=== PATIENT | female | born 1950 | race Caucasian/White ===

== ENCOUNTER 2020-02-09 17:12 | Inpatient (IN) ==
[2020-02-09] MEDS ORDERED: ALBUT/IPRATROP 3MG/0.5MG NEB 3 ML VIAL INH STA (17:47)
--- NOTE | 2020-02-09 17:51 | Emergency Department Note ---
Impression & Plan Acute exacerbation of chronic obstructive airways disease, Abnormal ECG, Chest pain, Bronchitis ED Provider Note NAME: CHAY ALMENDAREZ AGE: 69 SEX: F : 1950 ARRIVES VIA: Walk-In INFORMANT: Patient ED PROVIDER(S): Jim Holliday DO CHIEF COMPLAINT: Shortness of breath with a cough HPI: Patient is a 69-year-old female who presents the ER for shortness of br eath associated with a cough which is been worsening over the past 3 days. She notes she has had these symptoms off and on since end of October. She has been treated with 2 rounds of oral antibiotics/amoxicillin for a complicated bronchitis. She notes the symptoms improved and then they would recur. She denies any sore throat or runny nose. No loss of taste or smell. No ear congestion. She denies any current chest pain but does admit to some shortness of breath. Denies any belly pain nausea vomiting diarrhea or dysuria urgency. Denies any recent weight gain. Patient denies diabetes, hypertension, hyperlipidemia, CAD, or history of sudden at a young age. Patient denies swelling of calves, recent trips, history of immobilization or recent surgery, prior history of DVT, hemoptysis, history of malignancy, or control/estrogen use. Patient is a previous smoker for about 40 years. Was tested for coronavirus this past Thursday but was negative. ROS: See above HPI for pertinent positives & negatives. A total of 10 systems reviewed and were otherwise negative. PAST MEDICAL HISTORY:See Below PAST SURGICAL HISTORY:See Below FAMILY HISTORY:See Below SOCIAL HISTORY:See Below HOME MEDICATIONS:See Below ALLERGIES:See Below VITALS:See Below PHYSICAL EXAMINATION: GENERAL: Sitting up in bed, alert, well appearing, well nourished, no distress, non-toxic EYE EXAM: normal conjunctiva. PERRL and EOM's grossly intact. OROPHARYNX: no exudate, no erythema, lips, buccal mucosa, and tongue normal and mucous membranes are moist NECK: supple, no nuchal rigidity, no adenopathy, non-tender LUNGS: Wheezing bilaterally. Normal chest wall mechanics HEART: no murmurs, S1 normal and S2 normal ABDOMEN: abdomen soft, non-tender, normo-active bowel sounds, no masses, no rebound or guarding. BACK: Back is symmetrical on inspection and there is no deformity, no midline tenderness, no CVA tenderness. SKIN: no rashes and no bruising UPPER EXTREMITIES: upper extremities are grossly normal. LOWER EXTREMITIES: No pitting edema. Calves are equal bilateral NEURO EXAM: Normal sensorium, cranial nerves II-XII grossly intact, normal speech, no gross weakness of arms, no gross weakness of legs. MEDICAL DECISION MAKING: Patient is a 69-year-old female that presents the ER for shortness of breath with a cough which is been present intermittently since October. She notes the past 3 days has been getting a lot worse. She notes that she is significantly out of breath. IV was established blood work was obtained. Labs show no significant leukocytosis or anemia. INR was unremarkable. BMP, LFTs bilirubin and troponin was negative. D-dimer was elevated. UA was negative. Influenza was negative. CT of the chest shows tree budding but no open emboli. Patient was given neb treatments and her wheezing significantly improved as well as her shortness of breath. Her EKG showed nonspecific ST wave changes. No other to compare to. She was given IV antibiotics and updated bedside. She was discussed with hospitalist for observation due to her shortness of breath and abnormal EKG. she does mid to having chest pain several days ago but has not had any since then. Triage Nursing notes reviewed. Prior medical records reviewed Vital Signs: reviewed and remarkable for hypertension Differential diagnosis: Differential diagnoses includes but is not limited to pneumonia, bronchitis, COPD/Asthma exacerbation, pneumothorax, pulmonary embolism, congestive heart failure, acute coronary syndrome ER treatment provided: See below Diagnostics interpreted by me: ECG: Sinus rhythm rate of 75 Normal axis No PVCs Nonspecific ST wave changes V3 through V6 EKG #2 Sinus rhythm rate of [address] wave changes in V3 through V6 Normal QTC Cardiac Monitoring: An order was placed for continuous cardiac monitoring. The monitor shows a rate of 75 with sinus rhythm. Laboratory studies: As stated above and show below. Imaging studies: Portable AP upright 1 view of the chest shows no focal infiltrate or pneumothorax. CT ANGIO of the chest shows no PEs and tree budding opacities. Consultation(s): Discussed with Dr. Perez ED COURSE: Procedures: none Critical Care: None Past Med/Surg History Social History (System 01/20/19 @ 10:58 by Angelica Yi) Feels Safe at Home: Yes Smoking Status: Former smoker Allergies Allergies Allergy/AdvReac Type Severity Reaction Status Date / Time aspirin Allergy Unknown Hives Verified 02/09/20 19:19 perfume Allergy Unknown Headache, Verified 02/09/20 19:19 breathing difficulties pneumococcal vaccine Allergy Unknown Egg shaped Verified 02/09/20 19:19 purplish lump Home Meds Home Medications Medication Instructions Recorded Confirmed alprazolam 0.25 mg PO BID PRN 02/09/20 02/09/20 ascorbic acid (vitamin C) [Vitamin 1 g PO QAM 02/09/20 02/09/20 C] biotin 5,000 mcg SUBLINGUAL QAM 02/09/20 02/09/20 calcium carbonate [Calcium 600] 600 mg PO HS 02/09/20 02/09/20 cholecalciferol (vitamin D3) 0 mcg PO Q2D 02/09/20 02/09/20 [Vitamin D3] citalopram 10 mg PO HS 02/09/20 02/09/20 colestipol 1 g PO TID PRN 02/09/20 02/09/20 cyclosporine [Restasis] 1 drp OPB [facility] 02/09/20 02/09/20 glucos sul [id number] 1 cap PO QA 02/09/20 02/09/20 [Glucosamine Chondroitin] lactobacillus combination no.4 0 mmu cells PO QAM 02/09/20 02/09/20 [Probiotic] lisinopril 10 mg PO HS 02/09/20 02/09/20 mirtazapine 15 mg PO 02/09/20 02/09/20 multivitamin 1 tab PO QA 02/09/20 02/09/20 omega [id number]-fish oil [Fish Oil] 1 cap PO Q2D 02/09/20 02/09/20 omeprazole 20 mg PO HS 02/09/20 02/09/20 oxybutynin chloride 5 mg PO QAM 02/09/20 02/09/20 pravastatin 20 mg PO HS 02/09/20 02/09/20 turmeric 400 mg PO QAM 02/09/20 02/09/20 vitamin B complex 1 cap PO Q2D 02/09/20 02/09/20 vitamin E 0 unit PO Q2D 02/09/20 02/09/20 Results & Data (ED) Vital Signs Vital Signs - 24 hr 02/09/20 17:26 02/09/20 18:15 02/09/20 18:30 Temperature 36.9 C Temperature Source Oral Pulse Rate 78 94 H Pulse Rate [Left Finger] 86 Pulse Rate from SpO2 Sensor 94 H Respiratory Rate 20 18 19 Respiratory Effort / Characteristics Non-Labored Spontaneous Blood Pressure 152/82 H 152/69 H Blood Pressure Mean 105 91 Pulse Oximetry 95 94 97 Oxygen Delivery Method Room Air Room Air Room Air Sepsis Recent Fever Within 48 Hours No Sepsis Action Taken by Nursing No Action Required 02/09/20 18:46 02/09/20 18:57 02/09/20 19:00 Temperature Temperature Source Pulse Rate 94 H 102 H Pulse Rate [Left Finger] Pulse Rate from SpO2 Sensor 94 H 102 H Respiratory Rate 21 21 Respiratory Effort / Characteristics Blood Pressure 145/104 H Blood Pressure Mean 113 Pulse Oximetry 97 97 97 Oxygen Delivery Method Room Air Sepsis Recent Fever Within 48 Hours Sepsis Action Taken by Nursing 02/09/20 19:10 02/09/20 19:20 02/09/20 19:30 Temperature Temperature Source Pulse Rate 93 H 93 H 87 Pulse Rate [Left Finger] Pulse Rate from SpO2 Sensor 94 H 93 H 88 Respiratory Rate 19 20 21 Respiratory Effort / Characteristics Blood Pressure Blood Pressure Mean Pulse Oximetry 100 100 98 Oxygen Delivery Method Sepsis Recent Fever Within 48 Hours Sepsis Action Taken by Nursing 02/09/20 19:40 02/09/20 19:50 02/09/20 20:00 Temperature Temperature Source Pulse Rate 89 92 H 83 Pulse Rate [Left Finger] Pulse Rate from SpO2 Sensor 89 91 H 84 Respiratory Rate 24 15 17 Respiratory Effort / Characteristics Blood Pressure Blood Pressure Mean Pulse Oximetry 98 100 99 Oxygen Delivery Method Sepsis Recent Fever Within 48 Hours Sepsis Action Taken by Nursing 02/09/20 20:10 02/09/20 20:20 02/09/20 20:24 Temperature Temperature Source Pulse Rate 88 94 H 89 Pulse Rate [Left Finger] Pulse Rate from SpO2 Sensor 89 95 H 93 H Respiratory Rate 21 22 24 Respiratory Effort / Characteristics Blood Pressure 165/138 H Blood Pressure Mean 146 Pulse Oximetry 97 100 100 Oxygen Delivery Method Sepsis Recent Fever Within 48 Hours Sepsis Action Taken by Nursing 02/09/20 20:30 02/09/20 20:40 02/09/20 20:57 Temperature Temperature Source Pulse Rate 87 88 101 H Pulse Rate [Left Finger] Pulse Rate from SpO2 Sensor 86 89 100 H Respiratory Rate 22 23 27 H Respiratory Effort / Characteristics Blood Pressure 137/84 Blood Pressure Mean 104 Pulse Oximetry 98 92 96 Oxygen Delivery Method Sepsis Recent Fever Within 48 Hours Sepsis Action Taken by Nursing 02/09/20 21:00 02/09/20 21:01 02/09/20 21:10 Temperature Temperature Source Pulse Rate 92 H 91 H 92 H Pulse Rate [Left Finger] Pulse Rate from SpO2 Sensor 92 H 90 90 Respiratory Rate 26 H 19 23 Respiratory Effort / Characteristics Blood Pressure 149/105 H Blood Pressure Mean 119 Pulse Oximetry 94 96 95 Oxygen Delivery Method Sepsis Recent Fever Within 48 Hours Sepsis Action Taken by Nursing 02/09/20 21:20 02/09/20 21:30 02/09/20 21:40 Temperature Temperature Source Pulse Rate 91 H 91 H 91 H Pulse Rate [Left Finger] Pulse Rate from SpO2 Sensor 92 H 91 H 93 H Respiratory Rate 25 H 22 22 Respiratory Effort / Characteristics Blood Pressure 166/121 H Blood Pressure Mean 130 Pulse Oximetry 98 98 100 Oxygen Delivery Method Sepsis Recent Fever Within 48 Hours Sepsis Action Taken by Nursing 02/09/20 21:50 02/09/20 22:00 02/09/20 22:01 Temperature Temperature Source Pulse Rate 91 H 92 H 96 H Pulse Rate [Left Finger] Pulse Rate from SpO2 Sensor 92 H 90 96 H Respiratory Rate 19 Respiratory Effort / Characteristics Blood Pressure 135/72 Blood Pressure Mean 93 Pulse Oximetry 97 99 97 Oxygen Delivery Method Sepsis Recent Fever Within 48 Hours Sepsis Action Taken by Nursing 02/09/20 22:10 02/09/20 22:20 02/09/20 22:30 Temperature Temperature Source Pulse Rate 93 H 91 H 90 Pulse Rate [Left Finger] Pulse Rate from SpO2 Sensor 93 H 92 H 91 H Respiratory Rate 23 23 Respiratory Effort / Characteristics Blood Pressure 135/87 Blood Pressure Mean 113 Pulse Oximetry 95 96 96 Oxygen Delivery Method Sepsis Recent Fever Within 48 Hours Sepsis Action Taken by Nursing 02/09/20 23:01 Temperature Temperature Source Pulse Rate 89 Pulse Rate [Left Finger] Pulse Rate from SpO2 Sensor 89 Respiratory Rate 21 Respiratory Effort / Characteristics Blood Pressure 128/85 Blood Pressure Mean 92 Pulse Oximetry 95 Oxygen Delivery Method Room Air Sepsis Recent Fever Within 48 Hours Sepsis Action Taken by Nursing Laboratory Data Result diagrams: 02/09/20 19:24 02/09/20 18:30 Lab Results 02/09/20 02/09/20 02/09/20 Range/Units 18:30 18:30 18:30 WBC Cancelled RBC Cancelled Hgb Cancelled Hct Cancelled MCV Cancelled MCH Cancelled MCHC Cancelled RDW Std Deviation Cancelled RDW Coeff of Hayder Cancelled Plt Count Cancelled MPV Cancelled Immature Gran % (Auto) Cancelled Neut % (Auto) Cancelled Lymph % (Auto) Cancelled [place] % (Auto) Cancelled Eos % (Auto) Cancelled Baso % (Auto) Cancelled Immature Gran # (Auto) Cancelled Neut # (Auto) Cancelled Lymph # (Auto) Cancelled [place] # (Auto) Cancelled Eos # (Auto) Cancelled Baso # (Auto) Cancelled Absolute Nucleated RBC Cancelled Nucleated RBC % (auto) Cancelled Neutrophils % (Manual) Cancelled Band Neutrophils % Cancelled Lymphocytes % (Manual) Cancelled Prolymphocyte % Cancelled Reactive Lymphs % (Man) Cancelled Monocytes % (Manual) Cancelled Eosinophils % (Manual) Cancelled Basophils % (Manual) Cancelled Metamyelocytes % (Man) Cancelled Myelocytes % (Man) Cancelled Promyelocytes % (Man) Cancelled Blast Cells % (Manual) Cancelled Plasma Cell % (Manual) Cancelled Other Cells % Cancelled Nucleated RBC % Cancelled Neutrophils # (Manual) Cancelled Band Neutrophils # Cancelled Total Absolute Neuts Cancelled Lymphocytes # (Manual) Cancelled Prolymphocyte # Cancelled Reactive Lymphs # Cancelled Total Abs Lymphocytes Cancelled Monocytes # (Manual) Cancelled Eosinophils # (Manual) Cancelled Basophils # (Manual) Cancelled Metamyelocytes # (Man) Cancelled Myelocytes # (Manual) Cancelled Promyelocytes # (Man) Cancelled Blast Cells # (Man) Cancelled Plasma Cell # (Manual) Cancelled Other Cells # Cancelled Nucleated RBCs # (Man) Cancelled Hypersegmented Neuts Cancelled Hyposegmented Neuts Cancelled Hypogranular Neuts Cancelled Large Granular Lymphs Cancelled # Lrg Granular Lymphs Cancelled Hairy Cells Cancelled Smudge Cells Cancelled Toxic Granulation Cancelled Toxic Vacuolation Cancelled Dohle Bodies Cancelled Ana Rods Cancelled Platelet Estimate Cancelled Hypogranular Platelets Cancelled Clumped Platelets Cancelled Giant Platelets Cancelled Platelet Satelliting Cancelled RBC Morphology Cancelled Polychromasia Cancelled Hypochromasia Cancelled Poikilocytosis Cancelled Basophilic Stippling Cancelled Anisocytosis Cancelled Microcytosis Cancelled Macrocytosis Cancelled Spherocytes Cancelled Pappenheimer Bodies Cancelled Sickle Cells Cancelled Target Cells Cancelled Tear Drop Cells Cancelled Ovalocytes Cancelled Stomatocytes Cancelled [place] Bodies Cancelled Echinocytes Cancelled Acanthocytes (Spur) Cancelled Rouleaux Cancelled RBC Agglutinates Cancelled Schistocytes Cancelled RBC Morph Comment Cancelled Sezary Cell Cancelled PT Cancelled INR Cancelled APTT Cancelled PTT Ratio Cancelled D-Dimer Cancelled Sodium 142 (136-145) mmol/L Potassium 4.6 (3.5-5.1) mmol/L Chloride 106 (98-107) mmol/L Carbon Dioxide 29 (21-32) mmol/L Anion Gap 7.0 (3-11) BUN 12 (7-18) mg/dl Creatinine 0.75 (0.6-1.2) mg/dl Est Cr Clr Drug Dosing Not Reportable Est GFR ( Amer) 94.3 Est GFR (Non-Af Amer) 81.3 BUN/Creatinine Ratio 16.5 (10-20) Glucose 89 (70-99) mg/dl Calcium 9.2 (8.5-10.1) mg/dl Total Bilirubin 0.4 (0.2-1) mg/dl AST 33 (15-37) U/L ALT 32 (12-78) U/L Alkaline Phosphatase 98 (45-117) U/L Troponin I < 0.015 (0-0.045) ng/ml NT-Pro-B Natriuret Pep 76 (0-900) pg/ml Total Protein 6.8 (6.4-8.2) gm/dl Albumin 3.3 L (3.4-5.0) gm/dl Globulin 3.5 (2.5-4.0) gm/dl Albumin/Globulin Ratio 0.9 (0.9-2) Specimen Hemolysis Urine Color Urine Appearance (Clear) Urine pH (4.5-7.5) Ur Specific [place] (1.000-1.030) Urine Protein (Negative) Urine Glucose (UA) (Negative) Urine Ketones (Negative) Urine Blood (Negative) Urine Nitrite (Negative) Urine Bilirubin (Negative) Urine Urobilinogen (Negative) Ur Leukocyte Esterase (Negative) Influenza Type A (PCR) (Neg) Influenza Type B (PCR) (Neg) 02/09/20 02/09/2002/08/20 Range/Units 18:30 18:40 19:24 WBC RBC Hgb Hct MCV MCH MCHC RDW Std Deviation RDW Coeff of Hayder Plt Count MPV Immature Gran % (Auto) Neut % (Auto) Lymph % (Auto) [place] % (Auto) Eos % (Auto) Baso % (Auto) Immature Gran # (Auto) Neut # (Auto) Lymph # (Auto) [place] # (Auto) Eos # (Auto) Baso # (Auto) Absolute Nucleated RBC Nucleated RBC % (auto) Neutrophils % (Manual) Band Neutrophils % Lymphocytes % (Manual) Prolymphocyte % Reactive Lymphs % (Man) Monocytes % (Manual) Eosinophils % (Manual) Basophils % (Manual) Metamyelocytes % (Man) Myelocytes % (Man) Promyelocytes % (Man) Blast Cells % (Manual) Plasma Cell % (Manual) Other Cells % Nucleated RBC % Neutrophils # (Manual) Band Neutrophils # Total Absolute Neuts Lymphocytes # (Manual) Prolymphocyte # Reactive Lymphs # Total Abs Lymphocytes Monocytes # (Manual) Eosinophils # (Manual) Basophils # (Manual) Metamyelocytes # (Man) Myelocytes # (Manual) Promyelocytes # (Man) Blast Cells # (Man) Plasma Cell # (Manual) Other Cells # Nucleated RBCs # (Man) Hypersegmented Neuts Hyposegmented Neuts Hypogranular Neuts Large Granular Lymphs # Lrg Granular Lymphs Hairy Cells Smudge Cells Toxic Granulation Toxic Vacuolation Dohle Bodies Ana Rods Platelet Estimate Hypogranular Platelets Clumped Platelets Giant Platelets Platelet Satelliting RBC Morphology Polychromasia Hypochromasia Poikilocytosis Basophilic Stippling Anisocytosis Microcytosis Macrocytosis Spherocytes Pappenheimer Bodies Sickle Cells Target Cells Tear Drop Cells Ovalocytes Stomatocytes [place] Bodies Echinocytes Acanthocytes (Spur) Rouleaux RBC Agglutinates Schistocytes RBC Morph Comment Sezary Cell PT 10.7 INR 1.0 APTT 24.2 PTT Ratio 0.9 D-Dimer 810 H* Sodium (136-145) mmol/L Potassium (3.5-5.1) mmol/L Chloride (98-107) mmol/L Carbon Dioxide (21-32) mmol/L Anion Gap (3-11) BUN (7-18) mg/dl Creatinine (0.6-1.2) mg/dl Est Cr Clr Drug Dosing Est GFR ( Amer) Est GFR (Non-Af Amer) BUN/Creatinine Ratio (10-20) Glucose (70-99) mg/dl Calcium (8.5-10.1) mg/dl Total Bilirubin (0.2-1) mg/dl AST (15-37) U/L ALT (12-78) U/L Alkaline Phosphatase (45-117) U/L Troponin I (0-0.045) ng/ml NT-Pro-B Natriuret Pep (0-900) pg/ml Total Protein (6.4-8.2) gm/dl Albumin (3.4-5.0) gm/dl Globulin (2.5-4.0) gm/dl Albumin/Globulin Ratio (0.9-2) Specimen Hemolysis Urine Color Yellow Urine Appearance Clear (Clear) Urine pH 6.5 (4.5-7.5) Ur Specific [place] 1.008 (1.000-1.030) Urine Protein Negative (Negative) Urine Glucose (UA) Negative (Negative) Urine Ketones Negative (Negative) Urine Blood Negative (Negative) Urine Nitrite Negative (Negative) Urine Bilirubin Negative (Negative) Urine Urobilinogen Negative (Negative) Ur Leukocyte Esterase Negative (Negative) Influenza Type A (PCR) Neg for Influ A (Neg) Influenza Type B (PCR) Neg for Influ B (Neg) 02/09/20 Range/Units 19:24 WBC 8.21 RBC 4.43 Hgb 13.8 Hct 41.6 MCV 93.9 MCH 31.2 MCHC 33.2 RDW Std Deviation 44.6 RDW Coeff of [place]der 12.9 Plt Count 238 MPV 9.4 Immature Gran % (Auto) 0.2 Neut % (Auto) 43.0 Lymph % (Auto) 38.6 [place] % (Auto) 8.9 Eos % (Auto) 8.6 Baso % (Auto) 0.7 Immature Gran # (Auto) 0.02 Neut # (Auto) 3.52 Lymph # (Auto) 3.17 [place] # (Auto) 0.73 H Eos # (Auto) 0.71 H Baso # (Auto) 0.06 Absolute Nucleated RBC Nucleated RBC % (auto) Neutrophils % (Manual) Band Neutrophils % Lymphocytes % (Manual) Prolymphocyte % Reactive Lymphs % (Man) Monocytes % (Manual) Eosinophils % (Manual) Basophils % (Manual) Metamyelocytes % (Man) Myelocytes % (Man) Promyelocytes % (Man) Blast Cells % (Manual) Plasma Cell % (Manual) Other Cells % Nucleated RBC % Neutrophils # (Manual) Band Neutrophils # Total Absolute Neuts Lymphocytes # (Manual) Prolymphocyte # Reactive Lymphs # Total Abs Lymphocytes Monocytes # (Manual) Eosinophils # (Manual) Basophils # (Manual) Metamyelocytes # (Man) Myelocytes # (Manual) Promyelocytes # (Man) Blast Cells # (Man) Plasma Cell # (Manual) Other Cells # Nucleated RBCs # (Man) Hypersegmented Neuts Hyposegmented Neuts Hypogranular Neuts Large Granular Lymphs # Lrg Granular Lymphs Hairy Cells Smudge Cells Toxic Granulation Toxic Vacuolation Dohle Bodies Ana Rods Platelet Estimate Hypogranular Platelets Clumped Platelets Giant Platelets Platelet Satelliting RBC Morphology Polychromasia Hypochromasia Poikilocytosis Basophilic Stippling Anisocytosis Microcytosis Macrocytosis Spherocytes Pappenheimer Bodies Sickle Cells Target Cells Tear Drop Cells Ovalocytes Stomatocytes [place] Bodies Echinocytes Acanthocytes (Spur) Rouleaux RBC Agglutinates Schistocytes RBC Morph Comment Sezary Cell PT INR APTT PTT Ratio D-Dimer Sodium (136-145) mmol/L Potassium (3.5-5.1) mmol/L Chloride (98-107) mmol/L Carbon Dioxide (21-32) mmol/L Anion Gap (3-11) BUN (7-18) mg/dl Creatinine (0.6-1.2) mg/dl Est Cr Clr Drug Dosing Est GFR ( Amer) Est GFR (Non-Af Amer) BUN/Creatinine Ratio (10-20) Glucose (70-99) mg/dl Calcium (8.5-10.1) mg/dl Total Bilirubin (0.2-1) mg/dl AST (15-37) U/L ALT (12-78) U/L Alkaline Phosphatase (45-117) U/L Troponin I (0-0.045) ng/ml NT-Pro-B Natriuret Pep (0-900) pg/ml Total Protein (6.4-8.2) gm/dl Albumin (3.4-5.0) gm/dl Globulin (2.5-4.0) gm/dl Albumin/Globulin Ratio (0.9-2) Specimen Hemolysis Urine Color Urine Appearance (Clear) Urine pH (4.5-7.5) Ur Specific [place] (1.000-1.030) Urine Protein (Negative) Urine Glucose (UA) (Negative) Urine Ketones (Negative) Urine Blood (Negative) Urine Nitrite (Negative) Urine Bilirubin (Negative) Urine Urobilinogen (Negative) Ur Leukocyte Esterase (Negative) Influenza Type A (PCR) (Neg) Influenza Type B (PCR) (Neg) Administered Medications Levofloxacin/Dextrose (Levaquin/D5w) 750 mg in 150 mls @ 100 mls/hr IV Q24H SONJA Stop: 03/22/20 21:14 Last Admin: 02/09/20 21:54 Dose: 100 mls/hr Documented by: [id number] Ioversol (Optiray 320 125ml) 120 ml IV ONCE PRN PRN Reason: Interaction Checking Stop: 02/13/20 20:48 Last Admin: 02/09/20 20:49 Dose: 120 ml Documented by: [id number] Discontinued Medications Albuterol (Duoneb) 6 ml INH NOW STA Stop: 02/09/20 17:48 Last Admin: 02/09/20 18:12 Dose: 6 ml Documented by: [id number] Sodium Chloride (Nss) 500 mls @ 999 mls/hr IV .Q31M SONJA Stop: 02/09/20 18:30 Last Infusion: 02/09/20 19:30 Dose: 0 mls/hr Documented by: [id number] Admin: 02/09/20 18:55 Dose: 999 mls/hr Documented by: [id number] Discharge Plan Visit Data Chief Complaint: Shortness of Breath/Dyspnea Stated Complaint: LAST WEEK COVID TESTING, SOB ED Provider: Jim Holliday Discharge Problem: Acute exacerbation of chronic obstructive airways disease, Abnormal ECG, Chest pain, Bronchitis Discharge Instructions Interventions: ED Discharge Assessment Last Done: 02/09/20 22:54 Forms Stand Alone Forms: My [facility] Prescriptions Prescriptions: No Action multivitamin Tablet 1 tab PO QAM RF: 0 ascorbic acid (vitamin C) [Vitamin C] 1,000 mg Tablet 1 g PO QAM RF: 0 citalopram 10 mg tablet 10 mg PO HS RF: 0 calcium carbonate [Calcium 600] 600 mg calcium (1,500 mg) Tablet 600 mg PO HS RF: 0 alprazolam 0.25 mg tablet 0.25 mg PO BID PRN (Reason: Anxiety) RF: 0 lisinopril 10 mg tablet 10 mg PO HS RF: 0 oxybutynin chloride 5 mg tablet extended release 24hr 5 mg PO QAM RF: 0 omeprazole 20 mg capsule,delayed release(DR/EC) 20 mg PO HS RF: 0 pravastatin 20 mg tablet 20 mg PO HS RF: 0 mirtazapine 15 mg tablet 15 mg PO HS RF: 0 colestipol 1 gram tablet 1 g PO TID PRN (Reason: Diarrhea) RF: 0 vitamin E 400 unit Capsule 0 unit PO Q2D RF: 0 vitamin B complex Capsule 1 cap PO Q2D RF: 0 cholecalciferol (vitamin D3) [Vitamin D3] 25 mcg (1,000 unit) Capsule 0 mcg PO Q2D RF: 0 Restasis 0.05 % dropperette 1 drp OPB [facility] RF: 0 omega 2-pdq-qlp-fish oil [Fish Oil] 1,000 mg (120 mg-180 mg) Capsule 1 cap PO Q2D RF: 0 Probiotic 3 billion cell Capsule 0 mmu cells PO QAM RF: 0 biotin 5,000 mcg Tablet, Sublingual 5,000 mcg SUBLINGUAL QAM RF: 0 turmeric 400 mg Capsule 400 mg PO QAM RF: 0 Glucosamine Chondroitin 550-30-1 mg Capsule 1 cap PO QAM RF: 0 Referrals Referrals: Angelica Vargas DO [Primary Care Provider] - Discharge Problem: Chest pain Qualifiers: Chest pain type: unspecified Qualified Code(s): R07.9 - Chest pain, unspecified
[2020-02-09] MEDS ORDERED: SODIUM CHLORIDE 0.9% 500 ML IV SCH (18:00)
[2020-02-09 18:53] LABS: Appearance Urine Clear (Clear); Bilirubin Urine Negative (Negative); Blood Urine Negative (Negative); Color Urine Yellow; Glucose Urine UA Negative (Negative); Ketones Urine Negative (Negative); Leukocyte Esterase Urine Negative (Negative); Nitrite Urine Negative (Negative); Protein Urine Negative (Negative); Specific Gravity Urine 1.008 (1.000-1.030); Urobilinogen Urine Negative (Negative); pH Urine 6.5 (4.5-7.5)
--- NOTE | 2020-02-09 19:14 | XRay Report ---
XR chest 1V portable CLINICAL HISTORY: Dyspnea COMPARISON STUDY: No previous studies for comparison. FINDINGS: There is mild elevation of the right hemidiaphragm. Moderate dextroscoliosis of the thoraci c spine is noted. There is no consolidation or evidence for pulmonary edema. Apparent hazy left basil ar opacity is likely artifactual. There is borderline cardiomegaly. IMPRESSION: 1. No acute cardiopulmonary findings. 2. Moderate dextroscoliosis of the thoracic spine. ACT 112: Negative or not required by law. Electronically signed by: Abbe Morrow M.D. 02/09/2020 7:12 PM
[2020-02-09 19:25] LABS: Influenza A virus by PCR Neg for Influ A (Neg); Influenza B virus by PCR Neg for Influ B (Neg)
[2020-02-09 19:45] LABS: Basophils # (auto) 0.06 K/uL (0-0.2); Basophils % (auto) 0.7 %; Eosinophils # (auto) 0.71 K/uL (0-0.5); Eosinophils % (auto) 8.6 %; Hematocrit (blood only) 41.6 % (37-47); Hemoglobin 13.8 g/dL (12.0-16.0); Immature Granulocytes # (auto) 0.02 K/uL (0.00-0.02); Immature Granulocytes % (auto) 0.2 %; Lymphocytes # (auto) 3.17 K/uL (1.2-3.4); Lymphocytes % (auto) 38.6 %; Mean Corpuscular Hemoglobin 31.2 pg (25-34); Mean Corpuscular Hgb Conc 33.2 g/dL (32-36); Mean Corpuscular Volume 93.9 fL (80-100); Mean Platelet Volume 9.4 fL (7.4-10.4); Monocytes # (auto) 0.73 K/uL (0.11-0.59); Monocytes % (auto) 8.9 %; Neutrophils # (auto) 3.52 K/uL (1.4-6.5); Platelet Count 238 K/uL (130-400); RDW Coefficient of Variation 12.9 % (11.5-14.5); RDW Standard Deviation 44.6 fL (36.4-46.3); Red Blood Count 4.43 M/uL (4.2-5.4); White Blood Count 8.21 K/uL (4.8-10.8)
[2020-02-09 19:53] LABS: Alanine Aminotransferase 32 U/L (12-78); Albumin Globulin Ratio 0.9 (0.9-2); Albumin Level 3.3 gm/dl (3.4-5.0); Alkaline Phosphatase 98 U/L (45-117); BUN Creatinine Ratio 16.5 (10-20); Bilirubin,Total 0.4 mg/dl (0.2-1); Blood Urea Nitrogen 12 mg/dl (7-18); Calcium 9.2 mg/dl (8.5-10.1); Carbon Dioxide 29 mmol/L (21-32); Chloride 106 mmol/L (98-107); Est GFR (African American) 94.3; Est GFR (Non-African American) 81.3; Globulin 3.5 gm/dl (2.5-4.0); Glucose 89 mg/dl (70-99); NT Pro B Type Natriuretic Pept 76 pg/ml (0-900); Total Protein 6.8 gm/dl (6.4-8.2); Troponin I < 0.015 ng/ml (0-0.045)
[2020-02-09 19:58] LABS: Partial Thromboplastin Ratio 0.9; Partial Thromboplastin Time 24.2 Seconds (21.0-31.0); Prothrombin Time 10.7 Seconds (9.0-12.0)
[2020-02-09 20:03] LABS: Potassium 4.6 mmol/L (3.5-5.1); Sodium 142 mmol/L (136-145)
[2020-02-09 20:05] LABS: D Dimer 810 ug/L FEU (0-500)
[2020-02-09 20:12] LABS: Aspartate Aminotransferase 33 U/L (15-37)
[2020-02-09] MEDS ORDERED: OPTIRAY 320 125ml IV PRN (20:49)
--- NOTE | 2020-02-09 21:11 | CT Scan Report ---
CT ANGIOGRAPHY OF THE CHEST, PULMONARY EMBOLUS PROTOCOL CLINICAL HISTORY: Shortness of breath. Cough. COMPARISON STUDY: Chest radiograph performed earlier today. TECHNIQUE: Following IV administration of 20 mL of Optiray-320, helical axial images of the chest wer e obtained utilizing the pulmonary embolus protocol. Maximal intensity projections and sagittal and coronal reformats were viewed on an independent 3D workstation. IV contrast was administered without complication. Automated exposure control was utilized for the study. A dose lowering technique was utilized adhering to the principles of ALARA. CT DOSE: 618.71 mGycm FINDINGS: No pulmonary emboli are identified. The central pulmonary arteries are mildly dilated. The heart is mildly enlarged. There is mild preferential dilatation of the right heart chambers. Mild st raightening of the interventricular septum is noted. There is no pericardial effusion. No enlarged ax illary, mediastinal or hilar lymph nodes are present. The central airways are patent. No consolidatio n is identified. However, there are groundglass opacities with mosaic attenuation within the lungs. I n addition, there are scattered mild multifocal tree-in-bud nodules within the lungs. No pneumothorax or pleural effusion is noted. There is moderate dextroscoliosis of the thoracic spine. No suspicious lesions within the bony thorax are noted. IMPRESSION: 1. No pulmonary emboli identified. 2. Dilatation of the central pulmonary arteries which raises the possibility of pulmonary arterial hy pertension. Mild cardiomegaly with preferential dilatation of the right heart chambers and mild strai ghtening of the interventricular septum. 3. Scattered tree-in-bud nodules within the lungs which suggests an infectious process such as bronch iolitis. 4. Mild groundglass opacities with mosaic attenuation within the lungs which may reflect air trapping . ACT 112: Negative or not required by law. Electronically signed by: Abbe Morrow M.D. 02/09/2020 9:10 PM
[2020-02-09] MEDS ORDERED: LEVOFLOXACIN/D5W 750 MG/150 ML BAG IV SCH (21:15)
--- NOTE | 2020-02-09 23:44 | History and Physical Report ---
DATE OF ADMISSION: 02/09/2020 CHIEF COMPLAINT: Shortness of breath. HISTORY OF PRESENT ILLNESS: A 69-year-old female with past medical history significant for hyperlipidemia, hypertension, diverticulitis, irritable bowel syndrome, primary osteoarthritis of right shoulder, rotator cuff syndrome, nodular corneal degeneration, depression, generalized anxiety disorder, insomnia, presents with shortness of breath and cough and wheezing going on since October. She developed wheezing since October and in November she was treated with 10-day course of prednisone, amoxicillin seem to have improved and then the wheezing came back again on and off cough and she was given another 10-day course of prednisone, then last Thursday when she was talking on tele medicine with urologist, the urologist could hear wheezing and advised her to do COVID testing. It was done last Thursday and came back as negative. But today the cough got persistent and she is coughing up some yellowish phlegm which brought her to ER.. Denies any fever, chills, getting short of breath on exertion and wheezing. She has couple of episodes of chest pain but that got resolved, pressure like feeling. Denies any headache, has mild dizziness, no blurred vision, no earache, no runny nose, no sore throat, no difficulty swallowing. Appetite is good. Sleeping okay. No nausea, no vomiting, no abdominal pain. Normal bowel and bladder movements. No blood in stools or black stools. No hematuria or burning micturition, no swelling in the legs, no rash. Currently, resting comfortable and hemodynamically stable. ALLERGIES: ASPIRIN, PNEUMOCOCCAL VACCINE. PAST MEDICAL HISTORY: As mentioned above. PAST SURGICAL HISTORY: Colonoscopy, removal of the bilateral oviducts, right cataract surgery, total abdominal hysterectomy with removal of tubes. MEDICATIONS: The patient is on colestipol 1 gram p.o. t.i.d. p.r.n. for diarrhea, omeprazole 20 mg p.o. daily, oxybutynin XL 5 mg p.o. daily, citalopram 10 mg p.o. daily, alprazolam 0.5 mg p.o. b.i.d. p.r.n., Remeron 50 mg p.o. at bedtime, B complex vitamin 1 capsule daily, Biotin 1000 mcg daily, vitamin D3 5000 units p.o. daily, lisinopril 10 mg p.o. daily, pravastatin 20 mg p.o. daily, probiotic 1 capsule daily, glucosamine complex 1 tablet daily, Restasis 0.005% ophthalmic solution 1 drop in affected eye b.i.d., Systane ophthalmic solution 1 drop both eyes as needed, vitamin E 600 units p.o. daily, calcium 600 mg p.o. daily, multivitamins 1 tablet daily, vitamin C 500 mg p.o. b.i.d. FAMILY HISTORY: Significant for maternal grandmother had breast cancer. Mother had CAD, glaucoma. Father had accident. Sister has diabetes. SOCIAL HISTORY: , lives alone. Daughters live close by. Former smoker, smoked 3-4 pack a day for 15 years, quitting 40 years ago. Alcohol occasional. No drug use. REVIEW OF SYMPTOMS: As per HPI. Rest of review of systems negative. PHYSICAL EXAMINATION: GENERAL: The patient is of moderate build, not in acute distress. VITAL SIGNS: Temperature 36.9, pulse 91, respiratory rate 25, blood pressure 149/105, oxygen 98% room air. HEENT: No pallor, no icterus. Pupils equal, round, and reactive to light. NECK: No JVD, no neck masses, no carotid bruits. CARDIOVASCULAR: S1, S2 heard, regular rate and rhythm, no murmur, no gallop. RESPIRATORY SYSTEM: Normal AP diameter. No accessory muscle use. Bilateral mild wheezing and rhonchi heard, no crackles. ABDOMEN: Soft, bowel sounds present, nontender. No distention. CENTRAL NERVOUS SYSTEM: Cranial nerves II-XII grossly intact. Nonfocal. EXTREMITIES: No edema, no erythema. LABORATORY DATA: WBC 8.3, hemoglobin 13.8, hematocrit 41.6, platelets 238. PT 10.7, INR 1, APTT 24.2. D-dimer 18. Sodium 142, potassium 4.6, chloride 106, bicarbonate 29, BUN 12, creatinine 0.7, serum glucose 89, calcium 9.0, total bilirubin 0.4, AST 33, ALT 32, alkaline phosphatase 90. Troponin I less than 0.015. BNP 76. Urinalysis negative. Influenza A and B PCR negative. IMAGING DATA: Chest x-ray: No acute cardiopulmonary findings, moderate dextroscoliosis of the thoracic spine. CTA of the chest, no pulmonary emboli identified, dilatation of central pulmonary arteries which raises a possibility of pulmonary arterial hypertension, mild cardiomegaly with preferential dilatation of the right heart chambers and mild straightening of the intraventricular septum, scattered tree-in-bud nodules within the lung suggested infectious process such as bronchiolitis. Mild ground-glass opacities with mosaic attenuation within the lungs which may reflect air trapping. EKG: Normal sinus rhythm, rate of 75, no previous EKG available. ASSESSMENT AND PLAN: This is a 69-year-old female who presents with ongoing shortness of breath and wheezing and cough. Remote history of smoking, found to have bronchiolitis. 1. Acute bronchitis having shortness of breath on exertion and wheezing since October, she had couple a course of prednisone and 1 course of amoxicillin, not getting better. COVID test done last Thursday was negative. No loss of smell or taste. No exposure. No travel outside. CTA chest, no pulmonary embolism, but shows scattered tree-in-bud nodules within the lungs suggests an infectious process such as bronchiolitis. Dilatation of right heart noticed on ct scan present on previous echo. ER started IV Levaquin, which we will continue. Nebs around the clock, Solu- Medrol 40 mg b.i.d. and monitor in the med/surg tele.Retesting for covid as some ground glass lesions on ct scan. 2. History of hypertension. Continue her lisinopril with holding parameters. 3. History of depression and generalized anxiety disorder. Continue her Celexa, Remeron and alprazolam p.r.n. 4. Gastroesophageal reflux disease. Continue Prilosec. 5. Hyperlipidemia. Continue statin. 6. Deep vein thrombosis prophylaxis, sequential compression devices for now. 7. Disposition: Admit to med/surg tele. Level 1 full code. Expect discharge home and follow with her family doctor. MTDD
[2020-02-10] MEDS ORDERED: ALPRAZolam 0.25 MG TABLET PO PRN (00:23)
[2020-02-10] MEDS ORDERED: ACETAMINOPHEN 325 MG TAB PO PRN (00:23)
[2020-02-10] MEDS ORDERED: NITROGLYCERIN SL 0.4 MG/TAB TAB SL PRN (00:23)
[2020-02-10] MEDS ORDERED: COLESTIPOL HCL 1 GM TAB PO PRN (00:23)
[2020-02-10] MEDS ORDERED: LEVOFLOXACIN CONSULT ACTIVE PRN (00:49)
[2020-02-10] MEDS ORDERED: MIRTAZAPINE TAB 15 MG TAB PO STA (01:17)
[2020-02-10] MEDS ORDERED: lisinopriL 10 MG TAB PO STA (01:17)
[2020-02-10] MEDS ORDERED: ALPRAZolam 0.25 MG TABLET PO STA (01:17)
[2020-02-10] MEDS ORDERED: PRAVASTATIN SOD 20 MG TAB PO STA (01:17)
[2020-02-10] MEDS ORDERED: CITALOPRAM 20 MG TAB PO STA (01:17)
[2020-02-10] MEDS ORDERED: PANTOprazole 40 MG TAB PO STA (01:17)
[2020-02-10] MEDS: methylPREDNISolone 40 MG in SYRINGE 0 ML IV SCH ×2 (01:51→09:43)
[2020-02-10 05:50] LABS: Basophils # (auto) 0.06 K/uL (0-0.2); Basophils % (auto) 0.8 %; Eosinophils # (auto) 0.12 K/uL (0-0.5); Eosinophils % (auto) 1.5 %; Hematocrit (blood only) 42.3 % (37-47); Hemoglobin 14.3 g/dL (12.0-16.0); Immature Granulocytes # (auto) 0.02 K/uL (0.00-0.02); Immature Granulocytes % (auto) 0.3 %; Lymphocytes # (auto) 1.34 K/uL (1.2-3.4); Lymphocytes % (auto) 16.8 %; Mean Corpuscular Hemoglobin 31.7 pg (25-34); Mean Corpuscular Hgb Conc 33.8 g/dL (32-36); Mean Corpuscular Volume 93.8 fL (80-100); Mean Platelet Volume 9.7 fL (7.4-10.4); Monocytes # (auto) 0.11 K/uL (0.11-0.59); Monocytes % (auto) 1.4 %; Neutrophils # (auto) 6.34 K/uL (1.4-6.5); Neutrophils % (auto) 79.2 %; Platelet Count 246 K/uL (130-400); RDW Coefficient of Variation 12.9 % (11.5-14.5); RDW Standard Deviation 44.4 fL (36.4-46.3); Red Blood Count 4.51 M/uL (4.2-5.4); White Blood Count 7.99 K/uL (4.8-10.8)
[2020-02-10 06:24] LABS: BUN Creatinine Ratio 12.3 (10-20); Est GFR (African American) 91.3; Est GFR (Non-African American) 78.8; Magnesium 2.3 mg/dl (1.8-2.4); Potassium 4.2 mmol/L (3.5-5.1)
[2020-02-10] MEDS: ALBUT/IPRATROP 3MG/0.5MG NEB 3 ML VIAL NEB SCH ×3 (06:55→15:20)
[2020-02-10] MEDS: RESTASIS~ORDER AWAITING ACTION SCH ×2 (07:59→15:32)
[2020-02-10] MEDS ORDERED: NON-FORMULARY MEDICATION (Glucos Sul 2kcl-Msm-Chond-C-Mn [Glucosamine Chondroitin] 1 CAP) PO SCH (09:00)
[2020-02-10] MEDS ORDERED: OXYBUTYNIN CHLORIDE XL 5 MG TABCR PO SCH (09:00)
[2020-02-10] MEDS ORDERED: ASCORBIC ACID 500 MG TAB PO SCH (09:00)
[2020-02-10] MEDS ORDERED: CHOLECALCIFEROL 1,000 UNITS 25 MCG TAB PO SCH (09:00)
[2020-02-10] MEDS ORDERED: LACTOBACILLUS ACIDOPHILUS (FLORANEX) TAB PO SCH (09:00)
[2020-02-10] MEDS ORDERED: NON-FORMULARY MEDICATION (Biotin 5,000 MCG) SL SCH (09:00)
[2020-02-10] MEDS ORDERED: MULTIVITAMIN TAB PO SCH (09:00)
--- NOTE | 2020-02-10 15:14 | Hospitalist Progress Note ---
Date of Service February 10, 2020 Assessment & Plan (1) Bronchitis: presented with SOB , wheeze symptoms has improved no cough or sob ,no wheeze CTA chest, no pulmonary embolism, but shows scattered tree-in-bud nodules within the lungs suggests an infectious process such as bronchiolitis. will change Abx to PO Doxycycline 100 mg po BID for 7 days for bronchitis stable to be discharged home today with hospital follow up with family physician next week no prior hx of Asthma or COPD pt will need out pt pulmonary function test HTN: Cont out patient meds full code DISPOSITION : stable to be discharged home today Admission and Anticipated Discharge Date Admission Date: February 09, 2020 Subjective no complain of SOB , no cough remains in room air no chest pain no cough Review of Systems Review of Systems: All systems reviewed & are unremarkable except as noted in HPI & below Respiratory: no cough, no dyspnea, no dyspnea on exertion and no wheezing Physical Exam Constitutional: WD/WN, vitals as above no acute distress Eyes: PERRL, conjunctivae normal, anicteric sclerae ENMT: external ear and nose normal, oropharynx normal Neck: trachea midline, no thyromegaly Respiratory: normal respiratory effort, lungs clear to auscultation Cardiovascular: RRR, no murmur, no edema Gastrointestinal (Abdomen): normal bowel sounds, soft, nontender, no hepatosplenomegaly Musculoskeletal: no cyanosis or clubbing, extremities motor strength 5/5 Skin: no rashes, warm and dry Neurologic: PERRL, EOMI, accommodation nl, no face palsy, no dysarthria Psychiatric: A+Ox3, euthymic affect Results & Data Results & Data ([facility]) Vital Signs (Past 12 Hours) Vital Signs Temp Pulse Pulse Resp BP Pulse Ox 02/10/20 11:11 36.6 C 95 H 18 163/80 H 94 02/10/20 08:57 92 H 02/10/20 07:36 36.8 C 92 H 18 143/80 H 93 02/10/20 06:55 95 H 18 93 02/10/20 05:14 90 02/10/20 04:00 36.5 C 85 20 142/85 H 94
--- NOTE | 2020-02-10 16:00 | Discharge Summary ---
Date of Service February 10, 2020 Admission HPI Per Admitting Provider DICTATED BY: Norm Iqbal MD DATE OF ADMISSION: 02/09/2020 CHIEF COMPLAINT: Shortness of breath. HISTORY OF PRESENT ILLNESS: A 69-year-old female with past medical history significant for hyperlipidemia, hypertension, diverticulitis, irritable bowel syndrome, primary osteoarthritis of right shoulder, rotator cuff syndrome, nodular corneal degeneration, depression, generalized anxiety disorder, insomnia, presents with shortness of breath and cough and wheezing going on since October. She developed wheezing since October and in November she was treated with 10-day course of prednisone, amoxicillin seem to have improved and then the wheezing came back again on and off cough and she was given another 10-day course of prednisone, then last Thursday when she was talking on tele medicine with urologist, the urologist could hear wheezing and advised her to do COVID testing. It was done last Thursday and came back as negative. But today the cough got persistent and she is coughing up some yellowish phlegm which brought her to ER.. Denies any fever, chills, getting short of breath on exertion and wheezing. She has couple of episodes of chest pain but that got resolved, pressure like feeling. Denies any headache, has mild dizziness, no blurred vision, no earache, no runny nose, no sore throat, no difficulty swallowing. Appetite is good. Sleeping okay. No nausea, no vomiting, no abdominal pain. Normal bowel and bladder movements. No blood in stools or black stools. No hematuria or burning micturition, no swelling in the legs, no rash. Currently, resting comfortable and hemodynamically stable. Principal Diagnosis BRONCHITIS Discharge Exam Constitutional WD/WN, vitals as above no acute distress Eyes PERRL, conjunctivae normal, anicteric sclerae ENMT external ear and nose normal, oropharynx normal Neck trachea midline, no thyromegaly Respiratory normal respiratory effort, lungs clear to auscultation Cardiovascular RRR, no murmur, no edema Gastrointestinal (Abdomen) normal bowel sounds, soft, nontender, no hepatosplenomegaly Musculoskeletal no cyanosis or clubbing, extremities motor strength 5/5 Skin no rashes, warm and dry Neurologic PERRL, EOMI, accommodation nl, no face palsy, no dysarthria Psychiatric A+Ox3, euthymic affect Discharge Data Allergies Allergy/AdvReac Type Severity Reaction Status Date / Time aspirin Allergy Unknown Hives Verified 02/09/20 19:19 perfume Allergy Unknown Headache, Verified 02/09/20 19:19 breathing difficulties pneumococcal vaccine Allergy Unknown Egg shaped Verified 02/09/20 19:19 purplish lump Consultations 02/09/20 21:20 ED Decision to Admit Stat 02/10/20 00:23 Consult Case Management - Discharge Planning Routine Ordered Studies 02/09/20 20:16 CT angio chest PE protocol Stat Hospital Course (1) Bronchitis: presented with SOB , wheeze symptoms has improved no cough or sob ,no wheeze CTA chest, no pulmonary embolism, but shows scattered tree-in-bud nodules within the lungs suggests an infectious process such as bronchiolitis. will change Abx to PO Doxycycline 100 mg po BID for 7 days for bronchitis stable to be discharged home today with hospital follow up with family physician next week no prior hx of Asthma or COPD pt will need out pt pulmonary function test HTN: Cont out patient meds full code DISPOSITION : stable to be discharged home today Total Time Total Time Spent Total Time Spent (In Minutes): 35 MINS Total Time Includes: Examination of the Patient, Discharge Planning and Medication Reconciliation Discharge Plan Discharge Items Patient Disposition: Home - Self-Care Reason For Visit: SOB Discharge Diagnosis: BRONCHITIS Activity: Resume your previous activity Non-emergency contact: Primary Care Provider Call non-emergency contact if: you have any medication questions Follow-up/Referrals: Angelica Vargas DO [Primary Care Provider] - 02/16/20 11:00 am (Follow up with Dr Posey at [facility] on 02/16/20 @ 11am Dr Vargas's schedule is full ) Diet: Heart Healthy Addtl Attending Provider Instructions: YOU WILL NEED A LUNG FUNCTION TEST IN CLINIC PLEASE SCHEDULE IT THROUGH DR SILVA OFFICE Pending Studies at Discharge: No Stand-Alone Forms: [employer], Smoking Cessation Medications and DC Order Prescriptions: New doxycycline hyclate 100 mg capsule 100 mg PO BID 7 Days Qty: 14 RF: 0 methylprednisolone [Medrol (Xavier)] 4 mg tablets,dose pack 4 mg PO UD Qty: 21 RF: 0 albuterol sulfate 90 mcg/actuation HFA aerosol inhaler 2 puffs INH Q6H PRN (Reason: shortness of breath or wheezing) Qty: 18 RF: 2 Continued multivitamin Tablet 1 tab PO QAM RF: 0 ascorbic acid (vitamin C) [Vitamin C] 1,000 mg Tablet 1 g PO QAM RF: 0 citalopram 10 mg tablet 10 mg PO HS RF: 0 calcium carbonate [Calcium 600] 600 mg calcium (1,500 mg) Tablet 600 mg PO HS RF: 0 alprazolam 0.25 mg tablet 0.25 mg PO BID PRN (Reason: Anxiety) RF: 0 lisinopril 10 mg tablet 10 mg PO HS RF: 0 oxybutynin chloride 5 mg tablet extended release 24hr 5 mg PO QAM RF: 0 omeprazole 20 mg capsule,delayed release(DR/EC) 20 mg PO HS RF: 0 pravastatin 20 mg tablet 20 mg PO HS RF: 0 mirtazapine 15 mg tablet 15 mg PO HS RF: 0 colestipol 1 gram tablet 1 g PO TID PRN (Reason: Diarrhea) RF: 0 vitamin E 400 unit Capsule 0 unit PO Q2D RF: 0 vitamin B complex Capsule 1 cap PO Q2D RF: 0 cholecalciferol (vitamin D3) [Vitamin D3] 25 mcg (1,000 unit) Capsule 0 mcg PO Q2D RF: 0 Restasis 0.05 % dropperette 1 drp OPB AMHS RF: 0 omega [id number] oil [Fish Oil] 1,000 mg (120 mg-180 mg) Capsule 1 cap PO Q2D RF: 0 Probiotic 3 billion cell Capsule 0 mmu cells PO QAM RF: 0 biotin 5,000 mcg Tablet, Sublingual 5,000 mcg SUBLINGUAL QAM RF: 0 turmeric 400 mg Capsule 400 mg PO QAM RF: 0 Glucosamine Chondroitin 550-30-1 mg Capsule 1 cap PO QAM RF: 0 Discharge Orders: Discharge Order (Routine); Ordered 02/10/20 Ordered By: Olesya Stanton Admission Data Admit Date/Time: 02/09/20 22:28 Attending Provider: Olesya Stanton Admit Provider: Norm Iqbal Primary Care Provider: Angelica Vargas Other Providers: Norm Iqbal
--- NOTE | 2020-02-10 16:29 | Electrocardiogram Report ---
Test Reason : Blood Pressure : / mmHG Vent. Rate : 075 BPM Atrial Rate : 075 BPM P-R Int : 176 ms QRS Dur : 094 ms QT Int : 390 ms P-R-T Axes : 050 016 023 degrees QTc Int : 435 ms Normal sinus rhythm Normal ECG No previous ECGs available Confirmed by Cristhian Minaya ([id number]) on 02/10/2020 4:29:21 PM Referred By: REFERRED SELF Confirmed By:Cristhian Minaya
--- NOTE | 2020-02-10 16:45 | Electrocardiogram Report ---
Test Reason : Blood Pressure : / mmHG Vent. Rate : 091 BPM Atrial Rate : 091 BPM P-R Int : 194 ms QRS Dur : 100 ms QT Int : 390 ms P-R-T Axes : 052 032 036 degrees QTc Int : 479 ms Normal sinus rhythm Incomplete right bundle branch block Nonspecific ST and T wave abnormality Prolonged QT Abnormal ECG When compared with ECG of 09-FEB-2020 18:11, QT has lengthened Confirmed by Cristhian Minaya ([id number]) on 02/10/2020 4:45:32 PM Referred By: REFERRED SELF Confirmed By:Cristhian Minaya
[2020-02-10] MEDS ORDERED: CALCIUM 600MG + VIT D 400 IU TAB PO SCH (21:00)
[2020-02-10] MEDS ORDERED: CITALOPRAM 20 MG TAB PO SCH (21:00)
[2020-02-10] MEDS ORDERED: PANTOprazole 40 MG TAB PO SCH (21:00)
[2020-02-10] MEDS ORDERED: MIRTAZAPINE TAB 15 MG TAB PO SCH (21:00)
[2020-02-10] MEDS ORDERED: PRAVASTATIN SOD 20 MG TAB PO SCH (21:00)
[2020-02-10] MEDS ORDERED: lisinopriL 10 MG TAB PO SCH (21:00)
== END 2020-02-10 17:59 | disposition home or self-care (01) | DRG 203 ==
LOC: ED 17:12 → 2N 22:28